=== PATIENT | female | born 1975 | race Caucasian/White ===

== ENCOUNTER → 2018-02-21 | Outpatient (CLI) | payer BC, MEDICAID ==
[~2018-02-21] MED LIST: FAMO20TA5 PO; Ibuprofen PO; LORA10TA7 PO; METO10TA3 PO; PREN1TAB19 PO
--- NOTE | 2018-02-21 20:22 | Diagnostic Imaging Report ---
EXAMINATION: Digital Mammogram bilateral screening with 3D tomosynthesis. INDICATION: Screening. The current study was also evaluated with a Computer Aided Detection (CAD) system. This is the patient's baseline study. At this time, there are no current complaints. FINDINGS: The fibroglandular tissue in both breasts is heterogeneously dense. This does limit the sensitivity of this exam. There are a number of benign-appearing calcifications scattered throughout both breasts. Furthermore, the tomographic images do show areas of architectural distortion in both breasts, particularly in the upper-outer quadrant of the left breast and to a lesser extent the upper-outer quadrant of the right breast. By history, the patient has had a prior reduction mammoplasty procedure, and I suspect that these areas of architectural distortion are related to the previous breast surgery and not to neoplasm. However, unless there are previous exams available to demonstrate that these findings are stable, then compression views of the areas of architectural distortion in each breast should be performed. Ultrasound would be recommended for further evaluation as well. IMPRESSION: Additional mammographic views and ultrasound of both breasts would be recommended for further study. ACR BI-RADS Category 0: Incomplete. (Needs additional imaging evaluation). Result letter will be mailed to the patient. Note: At least 10% of breast cancer is not imaged by mammography. Dictated by: Dictated on workstation # [id number]
== END ==
LOC: RAD 11:13
PROVIDERS: ATTEND Obstetrics & Gynecology
DX: Z12.31 Encounter for screening mammogram for malignant neoplasm of breast (principal)
CPT/HCPCS: 77067

== ENCOUNTER → 2019-04-11 | Outpatient (CLI) | payer BC ==
--- NOTE | 2019-04-11 17:24 | Diagnostic Imaging Report ---
PROCEDURE: MR angiography of the brain without the use of contrast. TECHNIQUE: 3D [id number] non contrast enhanced MR angiography of the head was performed. A source data was reformatted into rotating MIP projections. INDICATION: Headaches, history of brain aneurysm. COMPARISON: There are no prior studies available for comparison. FINDINGS: There is no evidence for an aneurysm of the [place]. The major intracranial arterial branches appear symmetrical. The vertebrobasilar system is unremarkable. The left vertebral artery is dominant. The intracranial contents, where visualized, show no sign of a mass or of an acute abnormality. The ventricles are not abnormally dilated. The orbits are symmetrical and within normal limits. The sinuses, where visualized, are generally clear. The seventh and eighth nerve complexes are unremarkable. IMPRESSION: 1. There is no evidence for an aneurysm of the [place]. 2. There is no sign of a hemodynamically significant stenosis. 3. The brain, where visualized, shows no sign of a mass or of an acute intracranial abnormality. Dictated by: Dictated on workstation # [id number]
== END ==
LOC: RAD 15:56
PROVIDERS: ATTEND Physician Assistant
DX: G44.82 Headache associated with sexual activity (principal); Z86.79 Personal history of other diseases of the circulatory system
CPT/HCPCS: 70544